=== PATIENT | female | born 1990 | race Caucasian/White ===

== ENCOUNTER 2021-07-29 17:10 | Emergency (ER) | END 2021-07-29 17:15 | disposition left against medical advice (07) | LOC: M ED 17:10 | DX: Z53.21 Procedure and treatment not carried out due to patient leaving prior to being seen by health care provider (principal) ==

== ENCOUNTER 2021-07-30 17:52 | Observation (INO) | payer OTHER ==
[~2021-07-30] VITALS: Ht 165.1 cm; Wt 79.5 kg
[2021-07-30] MEDS ORDERED: NS 1,000 ML IV ONE (22:25)
[2021-07-30] MEDS ORDERED: diazePAM 10MG/2ML SYRINGE (J3360 PER 5MG) IV ONE (22:25)
[2021-07-30] MEDS ORDERED: KETOROLAC 30 MG/ML 1ML VIAL IV ONE (22:25)
[2021-07-30 23:23] LABS: BASO # 0.1 10^3/uL (0.0-0.2); BASO % 0.5 % (0.0-1.0); EOS # 0.1 10^3/uL (0.0-0.5); EOS % 0.6 % (0.0-3.0); HEMATOCRIT 36.6 % (36.0-47.0); HEMOGLOBIN 12.5 g/dl (12.0-15.5); LYMPH # 2.3 10^3/uL (1.5-5.0); LYMPH % 21.2 % (24.0-44.0); MEAN CORPUSCULAR HEMOGLOBIN 31.6 pg (27.0-33.0); MEAN CORPUSCULAR HGB CONC 34.2 g/dl (32.0-36.5); MEAN CORPUSCULAR VOLUME 92.7 fl (80.0-96.0); MONO # 0.8 10^3/uL (0.0-0.8); MONO % 7.7 % (2.0-8.0); NEUTROPHILS # 7.4 10^3/uL (1.5-8.5); NEUTROPHILS % 69.6 % (36.0-66.0); PLATELET COUNT, AUTOMATED 275 10^3/uL (150-450); RED BLOOD COUNT 3.95 10^6/uL (4.00-5.40); WHITE BLOOD COUNT 10.6 10^3/uL (4.0-10.0)
[2021-07-30 23:39] LABS: AMPHETAMINES LEVEL URINE NEGATIVE (NEGATIVE); BARBITURATES URINE NEGATIVE (NEGATIVE); BENZODIAZEPINES URINE NEGATIVE (NEGATIVE); CANNABINOIDS URINE POSITIVE (NEGATIVE); COCAINE METABOLITE URINE NEGATIVE (NEGATIVE); METHADONE URINE NEGATIVE (NEGATIVE); OPIATES URINE NEGATIVE (NEGATIVE); PHENCYCLIDINE URINE NEGATIVE (NEGATIVE)
[2021-07-30 23:46] LABS: BLOOD UREA NITROGEN 3 MG/DL (7-18); CALCIUM LEVEL 9.3 MG/DL (8.5-10.1); CARBON DIOXIDE LEVEL 22 MEQ/L (21-32); CHLORIDE LEVEL 104 MEQ/L (98-107); CREATININE FOR GFR 0.63 MG/DL (0.55-1.30); FREE T4 1.29 NG/DL (0.76-1.46); GLOMERULAR FILTRATION RATE > 60.0 (>60); GLUCOSE, FASTING 82 MG/DL (70-100); HCG, SERUM QUANTITATIVE 53 MIU/ML; POTASSIUM SERUM 3.8 MEQ/L (3.5-5.1); SODIUM LEVEL 137 MEQ/L (136-145)
[2021-07-31] MEDS ORDERED: FERR1TAB8 PO (01:46)
[2021-07-31] MEDS ORDERED: ALLE180T33 PO (01:46)
[2021-07-31] MEDS ORDERED: VITA500054 PO (01:46)
[2021-07-31] MEDS ORDERED: LEVO100T5 PO (01:46)
[2021-07-31] MEDS ORDERED: METO25TA4 PO (01:46)
[2021-07-31] MEDS ORDERED: HOME MED LIST COMPLETE! XX SCH (01:50)
[2021-07-31 02:25] LABS: RSV AMPLIFICATION NEGATIVE (NEGATIVE)
[2021-07-31] MEDS ORDERED: ACETAMINOPHEN *IV* 1,000 MG in IV 1 EA IV ONE (04:25)
[2021-07-31 05:15] VITALS: BP 152/96
[2021-07-31] MEDS: D5W/0.45% SODIUM CHLORIDE 1,000 ML IV SCH ×2 (05:45→17:01)
[2021-07-31 09:08] LABS: BASO % 0.4 % (0.0-1.0); EOS # 0.1 10^3/uL (0.0-0.5); EOS % 1.2 % (0.0-3.0); HEMATOCRIT 35.2 % (36.0-47.0); HEMOGLOBIN 11.8 g/dl (12.0-15.5); LYMPH # 1.5 10^3/uL (1.5-5.0); LYMPH % 18.5 % (24.0-44.0); MEAN CORPUSCULAR HEMOGLOBIN 31.6 pg (27.0-33.0); MEAN CORPUSCULAR HGB CONC 33.5 g/dl (32.0-36.5); MEAN CORPUSCULAR VOLUME 94.1 fl (80.0-96.0); MONO # 0.6 10^3/uL (0.0-0.8); MONO % 6.6 % (2.0-8.0); NEUTROPHILS # 6.1 10^3/uL (1.5-8.5); NEUTROPHILS % 72.9 % (36.0-66.0); PLATELET COUNT, AUTOMATED 230 10^3/uL (150-450); RED BLOOD COUNT 3.74 10^6/uL (4.00-5.40); WHITE BLOOD COUNT 8.3 10^3/uL (4.0-10.0)
[2021-07-31 09:29] LABS: ALBUMIN 3.4 GM/DL (3.2-5.2); ALT/SGPT 29 U/L (12-78); BILIRUBIN,TOTAL 0.6 MG/DL (0.2-1.0); BLOOD UREA NITROGEN 2 MG/DL (7-18); CALCIUM LEVEL 8.8 MG/DL (8.5-10.1); CARBON DIOXIDE LEVEL 25 MEQ/L (21-32); CHLORIDE LEVEL 105 MEQ/L (98-107); CREATININE FOR GFR 0.62 MG/DL (0.55-1.30); GLOMERULAR FILTRATION RATE > 60.0 (>60); GLUCOSE, FASTING 113 MG/DL (70-100); POTASSIUM SERUM 4.3 MEQ/L (3.5-5.1); SODIUM LEVEL 138 MEQ/L (136-145); TOTAL PROTEIN 6.6 GM/DL (6.4-8.2)
[2021-07-31] MEDS ORDERED: FIORICET TAB PO PRN (10:30)
[2021-07-31] MEDS ORDERED: LORazepam 2 MG TAB PO STA (10:31)
[2021-07-31] MEDS ORDERED: LORazepam 2 MG TAB PO PRN (10:35)
[2021-07-31] MEDS ORDERED: ONDANSETRON 4MG/2ML VIAL IV PRN (10:35)
[2021-07-31] MEDS: GABAPENTIN 100 MG CAP PO SCH ×3 (11:30→20:50)
[2021-07-31] MEDS ORDERED: LORazepam 2 MG TAB PO ONE (11:30)
[2021-07-31] MEDS: THIAMINE 100 MG TAB PO SCH ×2 (11:31→20:50)
[2021-07-31] MEDS: PRENATAL VITAMINS CHEWABLE TABLET PO SCH (11:31)
[2021-07-31] MEDS: rOPINIRole 0.25 MG TAB(REQUIP) PO SCH ×2 (11:31→11:36)
[2021-07-31] MEDS: cefTRIAXone SOD 1 GM in D5W MINI-BAG PLUS 50 ML IV SCH (11:31)
[2021-07-31] MEDS: PRAMIPEXOLE (MIRAPEX) 0.125 MG TAB PO SCH ×3 (12:00→20:50)
[2021-07-31] MEDS ORDERED: CEPH500C PO (13:01)
[2021-07-31] MEDS ORDERED: FOLI1TAB11 PO (13:01)
[2021-07-31] MEDS ORDERED: GABA-1171 PO (13:01)
[2021-07-31] MEDS ORDERED: MIRA0.12 PO (13:01)
[2021-07-31] MEDS ORDERED: ACET-683 PO (13:02)
[2021-07-31 13:42] LABS: HEMATOCRIT 35.9 % (36.0-47.0); HEMOGLOBIN 12.1 g/dl (12.0-15.5)
[2021-07-31 14:00] VITALS: BP 151/96
[2021-07-31] MEDS ORDERED: ATIV1TAB10 PO (15:33)
[2021-07-31] MEDS ORDERED: LUNE2TAB23 PO (15:34)
[2021-07-31] MEDS ORDERED: LORazepam 0.5 MG TAB PO ONE (17:00)
[2021-07-31 22:00] VITALS: BP 140/98
[2021-07-31] MEDS ORDERED: ACETAMINOPHEN 500 MG TAB PO PRN (22:50)
[2021-08-01] MEDS ORDERED: LORazepam 0.5 MG TAB PO ONE ×2 (01:25→09:35)
[2021-08-01 05:58] LABS: BASO % 0.4 % (0.0-1.0); EOS # 0.2 10^3/uL (0.0-0.5); EOS % 1.9 % (0.0-3.0); HEMATOCRIT 37.8 % (36.0-47.0); HEMOGLOBIN 12.4 g/dl (12.0-15.5); LYMPH # 1.8 10^3/uL (1.5-5.0); LYMPH % 20.1 % (24.0-44.0); MEAN CORPUSCULAR HEMOGLOBIN 30.8 pg (27.0-33.0); MEAN CORPUSCULAR HGB CONC 32.8 g/dl (32.0-36.5); MONO # 0.7 10^3/uL (0.0-0.8); MONO % 7.3 % (2.0-8.0); NEUTROPHILS # 6.3 10^3/uL (1.5-8.5); NEUTROPHILS % 70.1 % (36.0-66.0); PLATELET COUNT, AUTOMATED 254 10^3/uL (150-450); RED BLOOD COUNT 4.02 10^6/uL (4.00-5.40); WHITE BLOOD COUNT 8.9 10^3/uL (4.0-10.0)
[2021-08-01 06:00] VITALS: BP_SYST 140; BP_DIAS 88; BP_DIAS 98
[2021-08-01] MEDS ORDERED: LEVOTHYROXINE 100MCG TABLET (0.1MG) PO SCH (06:00)
[2021-08-01 06:35] LABS: ALBUMIN 3.4 GM/DL (3.2-5.2); ALT/SGPT 27 U/L (12-78); BILIRUBIN,TOTAL 0.5 MG/DL (0.2-1.0); BLOOD UREA NITROGEN 3 MG/DL (7-18); CALCIUM LEVEL 9.1 MG/DL (8.5-10.1); CARBON DIOXIDE LEVEL 23 MEQ/L (21-32); CHLORIDE LEVEL 105 MEQ/L (98-107); CREATININE FOR GFR 0.67 MG/DL (0.55-1.30); GLOMERULAR FILTRATION RATE > 60.0 (>60); GLUCOSE, FASTING 89 MG/DL (70-100); POTASSIUM SERUM 3.4 MEQ/L (3.5-5.1); SODIUM LEVEL 138 MEQ/L (136-145); TOTAL PROTEIN 6.3 GM/DL (6.4-8.2)
[2021-08-01] MEDS ORDERED: POTASSIUM CHLORIDE 10MEQ SR TABLET PO ONE (07:20)
[2021-08-01] MEDS: PRAMIPEXOLE (MIRAPEX) 0.125 MG TAB PO SCH ×2 (08:18→16:05)
[2021-08-01] MEDS: THIAMINE 100 MG TAB PO SCH (08:18)
[2021-08-01] MEDS: PRENATAL VITAMINS CHEWABLE TABLET PO SCH (08:18)
[2021-08-01] MEDS: GABAPENTIN 100 MG CAP PO SCH ×2 (08:18→16:05)
[2021-08-01] MEDS ORDERED: FOLI1TAB11 PO (08:50)
[2021-08-01] MEDS ORDERED: GABA-1171 PO (08:50)
[2021-08-01] MEDS ORDERED: MIRA0.12 PO (08:50)
[2021-08-01] MEDS ORDERED: CEPH500C PO (08:50)
[2021-08-01] MEDS ORDERED: ATIV1TAB10 PO (08:50)
[2021-08-01] MEDS ORDERED: ACET-683 PO (08:50)
[2021-08-01] MEDS ORDERED: LUNE2TAB23 PO (08:50)
[2021-08-01] MEDS ORDERED: FOLIC ACID 1 MG TAB PO SCH (09:00)
[2021-08-01] MEDS ORDERED: METOPROLOL TART 25 MG TABLET PO SCH (09:00)
[2021-08-01 09:09] VITALS: BP 120/80
[2021-08-01] MEDS ORDERED: CEPHALEXIN 500 MG CAP PO ONE (10:00)
[2021-08-01] MEDS: cefTRIAXone SOD 1 GM in D5W MINI-BAG PLUS 50 ML IV SCH (12:00)
[2021-08-01 13:50] VITALS: BP 147/102
[2021-08-01 14:00] VITALS: BP 120/80
== END 2021-08-01 16:10 | disposition home or self-care (01) ==
LOC: M ED 17:52 → M ED INP 17:53 → M MS5PR 07-31 05:27
PROVIDERS: ADMIT Internal Medicine; ATTEND Internal Medicine
DX: G43.901 Migraine, unspecified, not intractable, with status migrainosus (principal); N39.0 Urinary tract infection, site not specified; B96.20 Unspecified Escherichia coli [E. coli] as the cause of diseases classified elsewhere; R19.7 Diarrhea, unspecified; Z79.899 Other long term (current) drug therapy; Z88.2 Allergy status to sulfonamides; Z88.8 Allergy status to other drugs, medicaments and biological substances; M79.7 Fibromyalgia; F12.10 Cannabis abuse, uncomplicated; Z33.1 Pregnant state, incidental
CPT/HCPCS: 36415; 70450; 80048; 80053; 80307; 81001; 83735; 84439; 84443; 84702; 85014; 85018; 85025; 87088; 87186; 87631; 96374; 96375; 99284; J0131; J0696; J1885; J3360

== ENCOUNTER 2022-04-19 13:58 | Emergency (ER) | payer MEDICARE, OTHER ==
[~2022-04-19] VITALS: Ht 165.1 cm; Wt 81.8 kg
[~2022-04-19 13:58] MED LIST: ACET-683 PO; ALLE180T33 PO; ATIV1TAB10 PO; CEPH500C PO; FERR1TAB8 PO; FOLI1TAB11 PO; GABA-1171 PO; LEVO100T5 PO; LUNE2TAB23 PO; METO25TA4 PO; MIRA0.12 PO; VITA500054 PO
[2022-04-19] MEDS ORDERED: CYMB60CA4 PO (14:35)
[2022-04-19] MEDS ORDERED: AIMO70IN2 (14:35)
[2022-04-19 17:24] LABS: BASO # 0.1 10^3/uL (0.0-0.2); EOS % 0.4 % (0.0-3.0); HEMOGLOBIN 14.2 g/dl (12.0-15.5); LYMPH # 0.7 10^3/uL (1.5-5.0); LYMPH % 14.2 % (24.0-44.0); MEAN CORPUSCULAR HEMOGLOBIN 32.1 pg (27.0-33.0); MEAN CORPUSCULAR HGB CONC 33.8 g/dl (32.0-36.5); MONO # 0.4 10^3/uL (0.0-0.8); MONO % 8.1 % (2.0-8.0); NEUTROPHILS # 3.9 10^3/uL (1.5-8.5); NEUTROPHILS % 76.1 % (36.0-66.0); PLATELET COUNT, AUTOMATED 185 10^3/uL (150-450); RED BLOOD COUNT 4.42 10^6/uL (4.00-5.40); WHITE BLOOD COUNT 5.1 10^3/uL (4.0-10.0)
[2022-04-19 17:49] LABS: HCG, SERUM QUALITATIVE NEGATIVE (NEGATIVE)
[2022-04-19 17:58] LABS: ALBUMIN 3.9 GM/DL (3.2-5.2); ALT/SGPT 278 U/L (12-78); BILIRUBIN,DIRECT 0.2 MG/DL (0.0-0.2); BILIRUBIN,TOTAL 1.1 MG/DL (0.2-1.0); BLOOD UREA NITROGEN 4 MG/DL (7-18); CALCIUM LEVEL 9.4 MG/DL (8.5-10.1); CARBON DIOXIDE LEVEL 25 MEQ/L (21-32); CHLORIDE LEVEL 97 MEQ/L (98-107); CREATININE FOR GFR 0.82 MG/DL (0.55-1.30); GLOMERULAR FILTRATION RATE > 60.0 (>60); GLUCOSE, FASTING 103 MG/DL (70-100); LIPASE 208 U/L (73-393); POTASSIUM SERUM 4.7 MEQ/L (3.5-5.1); SODIUM LEVEL 135 MEQ/L (136-145); TOTAL PROTEIN 7.7 GM/DL (6.4-8.2)
[2022-04-19] MEDS ORDERED: KETOROLAC 30 MG/ML 1ML VIAL IV ONE (18:45)
[2022-04-19] MEDS ORDERED: NS 1,000 ML IV ONE (18:45)
[2022-04-19] MEDS ORDERED: ISOVUE-370 76% 100ML VIAL As Ordered ONE (20:09)
[2022-04-19] MEDS ORDERED: ACETAMINOPHEN 500 MG TAB PO ONE (20:15)
[2022-04-19 22:22] VITALS: BP 175/108
[2022-04-19] MEDS ORDERED: ONDA4TAB6 PO (22:22)
== END 2022-04-19 22:32 | disposition home or self-care (01) ==
LOC: EDBD 13:58 → M ED 13:58
DX: R79.89 Other specified abnormal findings of blood chemistry (principal); R10.9 Unspecified abdominal pain; R19.7 Diarrhea, unspecified; I10 Essential (primary) hypertension; I45.6 Pre-excitation syndrome; Z90.49 Acquired absence of other specified parts of digestive tract; Z87.891 Personal history of nicotine dependence
CPT/HCPCS: 74177; 76705; 80048; 80076; 83690; 84703; 85025; 87486; 87581; 87633; 87798; 93005; 96361; 96374; 99284; J1885

== ENCOUNTER → 2022-12-06 | Outpatient (CLI) | payer MEDICARE, OTHER ==
[~2022-12-06] MED LIST changes: +AIMO70IN2; +CYMB60CA4 PO; +ONDA4TAB6 PO
[2022-12-06 14:42] LABS: HCG, SERUM QUALITATIVE NEGATIVE (NEGATIVE)
== END ==
LOC: M PLALAB 11:00
PROVIDERS: ATTEND Psychiatry & Neurology Neurology
DX: Z32.00 Encounter for pregnancy test, result unknown (principal)

== ENCOUNTER 2023-08-21 14:50 | Inpatient (IN) | payer MEDICARE, OTHER ==
[~2023-08-21] VITALS: Ht 165.1 cm; Wt 82.0 kg
[~2023-08-21 14:50] MED LIST changes: -LUNE2TAB23 PO; +LUNE2TAB28 PO
[2023-08-21] MEDS ORDERED: LEVO88TA3 PO (15:18)
[2023-08-21] MEDS ORDERED: RA M500C PO (15:19)
[2023-08-21] MEDS ORDERED: PRENTAB9 PO (15:19)
[2023-08-21] MEDS ORDERED: EQL50TAB2 PO (15:19)
[2023-08-21 15:24] VITALS: BP 124/90
[2023-08-21 15:26] VITALS: O2SAT 98
[2023-08-21] MEDS ORDERED: CARBOPROST TROMETHAMINE 250 MCG/ML AMP IM PRN (15:30)
[2023-08-21] MEDS ORDERED: LIDOCAINE 1% MDV 20ML VIAL INFIL PRN (15:30)
[2023-08-21] MEDS ORDERED: OXYTOCIN INJ 10UNITS/ML 1ML VIAL IM PRN (15:30)
[2023-08-21] MEDS ORDERED: OXYTOCIN DRIP 30 UNITS in IV 1 EA IV PRN ×3 (15:30)
[2023-08-21] MEDS: LR 1,000 ML IV SCH (15:30)
[2023-08-21] MEDS ORDERED: TRANEXAMIC ACID INJection 1,000 MG in NS 100 ML IV PRN (15:30)
[2023-08-21] MEDS ORDERED: METHYLERGONOVINE MALEATE 0.2MG/ML 1ML VIAL IM PRN (15:30)
[2023-08-21] MEDS: ACETAMINOPHEN 500 MG TAB PO ONE (15:31)
[2023-08-21] MEDS ORDERED: B-122500 PO (15:39)
[2023-08-21 16:35] LABS: HEMATOCRIT 34.1 % (36.0-47.0); HEMOGLOBIN 11.6 g/dl (12.0-15.5); MEAN CORPUSCULAR HEMOGLOBIN 30.5 pg (27.0-33.0); MEAN CORPUSCULAR VOLUME 89.7 fl (80.0-96.0); PLATELET COUNT, AUTOMATED 270 10^3/uL (150-450); WHITE BLOOD COUNT 11.1 10^3/uL (4.0-10.0)
[2023-08-21 16:41] LABS: APPEARANCE, URINE CLEAR (CLEAR); BACTERIA, URINE AUTO NEGATIVE (NEGATIVE); BILIRUBIN, URINE AUTO NEGATIVE (NEGATIVE); BLOOD, URINE BLOOD NEGATIVE (NEGATIVE); COLOR, URINE YELLOW (YELLOW); GLUCOSE, URINE (UA) AUTO NEGATIVE (NEGATIVE); KETONE, URINE AUTO NEGATIVE (NEGATIVE); LEUKOCYTE ESTERASE, URINE AUTO NEGATIVE (NEGATIVE); NITRITE, URINE AUTO NEGATIVE (NEGATIVE); PROTEIN, URINE AUTO NEGATIVE (NEGATIVE); RBC, URINE AUTO 0 /HPF (0-3); SQUAMOUS EPITHELIAL CELL UR AU 1 /HPF (0-6); UROBILINOGEN, URINE AUTO 0.2 mg/dL (0.0-2.0); WBC, URINE AUTO 0 /HPF (0-3)
[2023-08-21 16:52] LABS: URIC ACID 5.6 MG/DL (3.1-7.8)
[2023-08-21 16:55] LABS: LDH LACTATE DEHYDROGENASE 175 U/L (120-246)
[2023-08-21 16:56] LABS: ALT/SGPT 16 U/L (7.0-40); AST/SGOT 20 U/L (<34); BILIRUBIN,TOTAL 0.5 MG/DL (0.3-1.2); CREATININE FOR GFR 0.58 MG/DL (0.55-1.30); GLOMERULAR FILTRATION RATE > 60.0 (>60)
[2023-08-21] MEDS: miSOPROStol 50MCG 1/2 TABLET PO SCH (17:01)
[2023-08-21 17:03] VITALS: BP 111/72
[2023-08-21 19:05] VITALS: BP 113/71
[2023-08-21] MEDS: DULoxetine 30MG CAPSULE (CYMBALTA) PO SCH (20:41)
[2023-08-22] VITALS (36 sets, daily range): BP systolic 101–150; BP diastolic 61–89; TEMP 97.8; O2SAT 98
[2023-08-22] MEDS: NALBUPHINE HCL 1MG/0.1ML (100MG/10ML) MDV IV PRN (00:29)
[2023-08-22] MEDS: CEPACOL LOZENGE PO PRN (01:35)
[2023-08-22] MEDS: LR 1,000 ML IV SCH ×2 (04:05→21:35)
[2023-08-22] MEDS: LEVOTHYROXINE 88MCG TABLET (0.088 MG) PO SCH (06:03)
[2023-08-22] MEDS: OXYTOCIN DRIP 30 UNITS in IV 1 EA IV SCH ×2 (09:07→21:35)
[2023-08-22] MEDS: LACTATED RINGER'S 1000 ML IV STA (11:35)
[2023-08-22] MEDS ORDERED: FENTANYL 2MCG/ML ROPIVACAINE 0.2% IN 0.9% NACL 100ML IVBAG As Ordered ONE (11:54)
[2023-08-22] MEDS ORDERED: diphenhydrAMINE 50MG/ML VIAL IV PRN ×2 (11:55→22:50)
[2023-08-22] MEDS ORDERED: LR 500 ML IV PRN (11:55)
[2023-08-22] MEDS ORDERED: NALOXONE INJ 0.4MG/1ML VIAL IV PRN ×3 (11:55→22:50)
[2023-08-22] MEDS ORDERED: ONDANSETRON 4MG 2ML VIAL IV PRN ×3 (11:55→22:50)
[2023-08-22] MEDS ORDERED: EPIDURAL/PCA KEYS XX PRN (11:55)
[2023-08-22] MEDS: FENTANYL/ROPIVACAINE/NACL BAG 100 ML EPIDURAL SCH (12:58)
[2023-08-22] MEDS: ACETAMINOPHEN 500 MG TAB PO ONE (18:25)
[2023-08-22] MEDS ORDERED: ceFAZolin SOD 2 GM in IV 1 EA IV ONE (19:10)
[2023-08-22] MEDS ORDERED: MORPHINE PRES-FREE INJ 10 MG/10 ML VIAL As Ordered ONE (19:35)
[2023-08-22] MEDS: AZITHROMYCIN INJ 500 MG, VIAL MATE ADAPTER 1 EACH in NS 250 ML IV ONE (19:37)
[2023-08-22] MEDS: BICITRA 30ML SOLN UDC PO ONE (19:37)
[2023-08-22] MEDS: AMPICILLIN SOD 2 GM in D5W MINI-BAG PLUS 100 ML IV SCH (19:42)
[2023-08-22] MEDS: CLINDAMYCIN 900 MG in IV 1 EA IV SCH (19:44)
[2023-08-22] MEDS ORDERED: OXYTOCIN 30UNITS IN 0.9% NaCl 500ML IV BAG As Ordered ONE (20:09)
[2023-08-22 20:33] LABS: CORD GAS ABE A -5.4; CORD GAS HCO3 A 24.1 MMOL/L; CORD GAS O2 SAT A 27.6 %; CORD GAS PCO2 A 63.4 mmHg; CORD GAS PH A 7.198 UNITS; CORD GAS PO2 A 16.1 mmHg; CORD GAS SBC A 18.4 MMOL/L; CORD GAS TCO2 A 26.1 MMOL/L
[2023-08-22 20:34] LABS: CORD GAS HCO3 V 22.1 MMOL/L; CORD GAS O2 SAT V 74.4 %; CORD GAS PCO2 V 43.8 mmHg; CORD GAS PH V 7.321 UNITS; CORD GAS PO2 V 31.3 mmHg; CORD GAS SBC V 20.6 MMOL/L; CORD GAS TCO2 V 23.5 MMOL/L
[2023-08-22] MEDS ORDERED: PHENYLephrine 500MCG 5ML (100MCG/ML) SYRINGE As Ordered ONE (20:50)
[2023-08-22] MEDS ORDERED: LIDOCAINE 2% INJ 100 MG/5 ML SYRINGE As Ordered ONE (20:50)
[2023-08-22] MEDS ORDERED: ONDANSETRON 4MG 2ML VIAL As Ordered ONE (20:50)
[2023-08-22] MEDS ORDERED: ePHEDrine SULFATE 25 MG/5 ML(5MG/ML) SYRINGE As Ordered ONE (20:50)
[2023-08-22] MEDS: GENTAMICIN 400 MG in D5W 100 ML IV ONE (21:07)
[2023-08-22] MEDS ORDERED: KETOROLAC 60MG 2ML VIAL As Ordered ONE (21:20)
[2023-08-22] MEDS: ACETAMINOPHEN 500 MG TAB PO SCH (21:35)
[2023-08-22] MEDS ORDERED: oxyCODONE 5MG TAB PO PRN ×2 (21:35→22:50)
[2023-08-22] MEDS ORDERED: RHOGAM 300MCG (1500IU) INJ IM SCH (21:35)
[2023-08-22] MEDS ORDERED: HYDROMORPHONE HCL 0.5 MG/ 0.5 ML SYRINGE IV PRN (22:50)
[2023-08-22] MEDS: SLF 3 ML SYR IV SCH (22:50)
[2023-08-22] MEDS ORDERED: fentaNYL 100 MCG/2 ML INJECTION IV PRN (22:50)
[2023-08-22] MEDS ORDERED: MEPERIDINE 25 MG/ML 1ML VIAL IV PRN (22:50)
[2023-08-22] MEDS ORDERED: **NOTE PATIENT COMMENT** MISC XX SCH (22:50)
[2023-08-23] VITALS (9 sets, daily range): BP systolic 99–128; BP diastolic 58–75; O2SAT 96–99
[2023-08-23] MEDS: METHYLERGONOVINE MALEATE 0.2 MG TAB PO SCH (02:54)
[2023-08-23] MEDS: KETOROLAC 30 MG/ML 1ML VIAL IV SCH (02:54)
[2023-08-23] MEDS ORDERED: METHYLERGONOVINE MALEATE 0.2MG/ML 1ML VIAL ONE (03:56)
[2023-08-23] MEDS: oxyCODONE 5MG TAB PO PRN (05:37)
[2023-08-23 07:37] LABS: HEMATOCRIT 32.6 % (36.0-47.0); HEMOGLOBIN 10.8 g/dl (12.0-15.5); MEAN CORPUSCULAR HEMOGLOBIN 29.9 pg (27.0-33.0); MEAN CORPUSCULAR HGB CONC 33.1 g/dl (32.0-36.5); MEAN CORPUSCULAR VOLUME 90.3 fl (80.0-96.0); PLATELET COUNT, AUTOMATED 204 10^3/uL (150-450); RED BLOOD COUNT 3.61 10^6/uL (4.00-5.40); WHITE BLOOD COUNT 22.3 10^3/uL (4.0-10.0)
[2023-08-23] MEDS: DOCUSATE SODIUM 100MG CAPSULE PO SCH (09:21)
[2023-08-23] MEDS: SIMETHICONE 80MG CHEW TAB PO PRN (13:56)
[2023-08-23] MEDS: IBUPROFEN 800 MG TAB PO SCH (22:58)
[2023-08-24 02:00] VITALS: BP 109/63; O2SAT 100
[2023-08-24 05:47] VITALS: BP 100/59; O2SAT 100
[2023-08-24] MEDS ORDERED: MEASLES,MUMPS,RUBELLA VACCINE INJ (MMR-II) SC.IMMUN ONE (09:00)
[2023-08-24 10:00] VITALS: BP 103/65; O2SAT 100
[2023-08-24 14:00] VITALS: BP 118/65; O2SAT 97
[2023-08-24 18:00] VITALS: BP 135/77; O2SAT 99
[2023-08-24 22:00] VITALS: BP 114/72; O2SAT 99
[2023-08-25 06:00] VITALS: BP 121/77; O2SAT 100
[2023-08-25] MEDS ORDERED: ACET-683 PO (06:24)
[2023-08-25] MEDS ORDERED: COLA100C5 PO (06:24)
[2023-08-25] MEDS ORDERED: OXYC-517 PO (06:24)
[2023-08-25] MEDS ORDERED: IBUP80TA PO (06:24)
[2023-08-25] MEDS: MEASLES,MUMPS,RUBELLA VACCINE INJ (MMR-II) SC.IMMUN ONE (07:14)
== END 2023-08-25 11:20 | disposition home or self-care (01) | DRG 788 ==
LOC: M LDO 14:50 → M LDI 15:49 → M OBS 08-22 23:19
PROVIDERS: ADMIT Obstetrics & Gynecology; ATTEND Obstetrics & Gynecology
PROC: 3E0P7GC Introduction of Other Therapeutic Substance into Female Reproductive, Via Natural or Artificial Opening (ICD-10-PCS; 2023-08-21)
PROC: 10D00Z1 Extraction of Products of Conception, Low, Open Approach (ICD-10-PCS; principal; 2023-08-22 20:45)
DX: O40.3XX0 Polyhydramnios, third trimester, not applicable or unspecified (principal); Z37.0 Single live birth; Z3A.39 39 weeks gestation of pregnancy; O99.334 Smoking (tobacco) complicating childbirth; F17.290 Nicotine dependence, other tobacco product, uncomplicated; O99.284 Endocrine, nutritional and metabolic diseases complicating childbirth; E03.9 Hypothyroidism, unspecified; Z87.890 Personal history of sex reassignment